=== PATIENT | female | born 1965 | race Caucasian/White ===

== ENCOUNTER 2023-12-17 07:12 | Emergency (ER) | payer BC, SELFPAY ==
[2023-12-17 07:13] VITALS: BMI 25.9
[2023-12-17 07:16] VITALS: BP 199/112
[2023-12-17 07:29] VITALS: BP 197/90
--- NOTE | 2023-12-17 07:53 | ED.MUSCINJ ---
HPI-Injury
General
Chief Complaint: Musculo-Skeletal Complaint
Source: patient
Exam Limitations: none
Time Seen by Provider: 12/17/23 07:29
Nursing documentation reviewed up to this point in time: agreed with
Travel History
Have you had any contact with someone who has COVID-19?: No
Do you have any symptoms of coronavirus? Fever > 100 degrees, chills, cough, shortness of breath, sore throat, loss of taste or smell, muscle aches, or headache?: No
History of Present Illness-Injury
Initial Injury comments:
58-year-old female for evenings ago struck the left lateral mid ribs on the back of a chair, the area has been increasingly painful since. 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
boards. States pain is 10/10.
Past History
Past History
ED Past Medical History: None
ED Past Surgical History: Cholecystectomy and Gynecological
Social History
Tobacco: Smoker
Alcohol: Occasional
Personal:
Living: with family
Employment: Employed
Review of Systems
Review of Systems
Allergies reviewed?: Yes
All Other Systems: ROS reviewed and negative except as documented in HPI and ROS
Constitutional: Denies fever
Respiratory: Denies cough, hemoptysis or trouble breathing
Cardiac: Denies chest pain
ABD/GI: Denies abdominal pain or nausea
Musculoskeletal: Reports other (pain left lateral mid ribs)
Skin: Reports no symptoms
Phy Exam
Physical Exam
Physical Exam:
GENERAL: No acute distress. A&Ox3.
CONSTITUTIONAL: Afebrile.
RESPIRATORY: Regular respirations, nonlabored, lungs clear.
CARDIOVASCULAR: Regular rate and rhythm, no murmurs, no rubs.
GI: Soft, nontender
MUSCULOSKELETAL: Tender mid lateral left rib cage. Moves with ease. Well perfused.
SKIN: Warm, dry, pink
PSYCH: Normal mood and affect. Well kept, interactive and appropriate
NEUROLOGIC: Awake, alert and oriented. No focal neurological deficits
Injury Course
Orders/Labs/Results
Orders:
Orders
12/17/23 07:52
Ketorolac [Toradol] 30 mg IM NOW STA
Ribs, Left 3 View W/PA Chest CR [CR Ribs-left 3 Vw W/pa Chest] Urgent
Comment:
Reason For Exam: struck later mid ribs on chair back
12/17/23 07:56
Rx Incentive Spirometry [RESP] Urgent
Frequency: q1h while awake
12/17/23 08:55
Dexamethasone [Decadron] 10 mg PO NOW STA
Diphenhydramine [Benadryl] 50 mg PO NOW STA
MDM/Problems Addressed
Differential Diagnosis Includes:
rib contusion, rib fracture
allergic reaction
MDM/Problems Addressed:
58-year-old female for evenings ago struck the left lateral mid ribs on the back of a chair, the area has been increasingly painful since. 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
boards. States pain is 10/10.
Left rib x-rays initially read by this examiner: There is a nondisplaced fracture of rib #6, no pneumothorax or other abnormality noted
8:55 AM
Rib belt applied with stated comfort. Toradol IM given for pain
Since patient is a smoker, incentive spirometer given with instructions on use, encouraged to stop smoking. She has 'the patch' at home to use if needed
Patient is breaking out in welts about her neck chest and back, most likely reaction to the Toradol
Benadryl and Decadron ordered
9:30 a.m.
Pt has had no further hives, no other symptoms developed. Stable for discharge.
Rx for Prednisone 40 mg daily x 3 days sent to her pharmacy. Henderson rx sent to her pharmacy
*Critical Care Note
Total Time (30-74mins, 75-104mins- exclusive of procedures): Not Applicable
ED Attending Note
-
Portions of this chart may have been created with voice recognition software.� Occasional wrong word or��sound alike� substitutions may have occurred due to the inherent limitations of voice recognition software.
Discharge Plan
Departure
Patient Disposition: Home (Routine Discharge)
Date of Disposition: 12/17/23
Time of Disposition: 09:38
Patient with high blood pressure during this ER visit?: Yes
Condition: Good
Discharge Problem:
Left rib fracture, Allergic reaction caused by a drug
Instructions: Rib fractures in adults, Allergic Reaction ED
Prescriptions:
New
hydrocodone-acetaminophen 5-325 mg tablet
1 tab PO Q8H PRN (Reason: Pain) Qty: 14 0RF
prednisone 20 mg tablet
40 mg PO DAILY Qty: 6 0RF
No Action
famotidine [Pepcid] 20 mg Tablet
20 mg PO DAILY PRN (Reason: heartburn)
calcium carbonate [Tums] 200 mg calcium (500 mg) Tablet,Chewable
600 - 800 mg PO BID PRN (Reason: heartburn)
Referrals:
Wesly Ayers MD [Family Provider] - Call in 1-3 days for appt
Stand Alone Forms: Return to Work
Activity Restrictions/Additional Instructions:
As we discussed, ibuprofen 600 mg, with food, every 6 hours as needed for mild to moderate pain and use the Henderson which is hydrocodone if needed for worse pain.
Do not drive or operate any machinery within 6 hours of taking the hydrocodone as it can make you sleepy and slow the reflexes.
Wear the rib belt if it helps
Use the incentive spirometer taking 10 deep breaths in every hour while awake for the next week.
I sent a prescription to your pharmacy for the Henderson
I also sent a prescription to your pharmacy for prednisone 40 mg daily for 3 days. Started tomorrow as you were given a dose of steroid here today for the reaction to the Toradol.
Consider self allergic to Toradol and do not take it again
Interventions
Interventions:
*Risk Screen - Suicide Last Done: 12/17/23 07:16
*General Assessment Last Done: 12/17/23 07:16
*Neglect/Abuse Screening Last Done: 12/17/23 07:16
ED- Fall Risk Assessment Last Done: 12/17/23 09:53
*ED COVID-19 Vaccine History Last Done: 12/17/23 07:16
*Nursing Disposition Last Done: 12/17/23 09:53
ED-Musculoskeletal Assessment Last Done: 12/17/23 07:27
Discharge Date and Time
Discharge Date/Time: 12/17/23 09:54
Print Language: GREEK
[2023-12-17] MEDS: TORADOL 30 MG IM (08:04)
[2023-12-17] MEDS: BENADRYL 50 MG PO (09:02)
[2023-12-17] MEDS: DECADRON 10 MG PO (09:02)
[2023-12-17 09:03] VITALS: BP 167/80
--- NOTE | 2023-12-17 09:06 | EDRN ---
Pt had an allergic reaction to Toradol with hives to upper body. No anaphylaxis. Medicated with Benadryl and Decadron. Allergy recorded.
[2023-12-17 09:53] VITALS: BP 162/87
== END 2023-12-17 09:54 | disposition home or self-care (01) ==
LOC: EMR 07:12
PROVIDERS: EMERGENCY PHYSICIAN Emergency Medicine
DX: S22.32XA Fracture of one rib, left side, initial encounter for closed fracture (principal); T50.905A Adverse effect of unspecified drugs, medicaments and biological substances, initial encounter; L50.9 Urticaria, unspecified; W22.8XXA Striking against or struck by other objects, initial encounter; R03.0 Elevated blood-pressure reading, without diagnosis of hypertension; F17.200 Nicotine dependence, unspecified, uncomplicated; Z90.49 Acquired absence of other specified parts of digestive tract; Z88.6 Allergy status to analgesic agent
CPT/HCPCS: 99284; 96372; 71101

== ENCOUNTER 2024-05-14 07:33 | Emergency (ER) | payer SELFPAY ==
[2024-05-14 07:35] VITALS: BP 197/101
--- NOTE | 2024-05-14 08:31 | ED.GENMED ---
History of Present Illness
General
Chief Complaint: Musculo-Skeletal Complaint
Source: patient
Exam Limitations: none
Time Seen by Provider: 05/14/24 07:45
Nursing documentation reviewed up to this point in time: agreed with
History of Present Illness
History of Present Illness:
58-year-old female history of COPD, GERD presenting to the emergency department after trip and fall while at work a few hours prior to arrival hitting her left axilla region. Also hit her left knee. Able to walk only main discomfort at this point
is the left axillary ribs. Slight increase in discomfort with deep breaths no nausea vomiting no head trauma not on blood thinners no neck pain no specific chest pain.
Past History
Past History
ED Past Medical History: None
ED Past Surgical History: Cholecystectomy and Gynecological
Social History
Tobacco: Smoker
Alcohol: Occasional
Personal:
Living: with family
Employment: Employed
Review of Systems
Review of Systems
Allergies reviewed?: Yes
All Other Systems: ROS reviewed and negative except as documented in HPI and ROS
Phy Exam
Physical Exam
Physical Exam:
GENERAL: Alert , in no apparent distress
EYE: pupils equal and reactive
NECK: Supple, no significant adenopathy. No neck pain to palpation
ENT: o/p clr, mmm.
CARDIAC: Tenderness palpation to the left axillary ribs roughly rib space 3 and 4. No overlying skin changes no crepitus. Regular rate and rhythm .
LUNGS: Clear breath sounds bilaterally, no acute respiratory distress, no wheezes/rales/rhonchi
ABDOMEN: Soft, without focal tenderness, no r/g, no cvat
NEUROLOGICAL: Alert and oriented, no focal neuro deficits 5 out of 5 upper and lower extremity strength normal sensation with palpating bilaterally.
SKIN: Warm and dry, skin intact.
MUSCULOSKELETAL: No edema, well perfused. Good range of motion and strength of all extremities
PSYCH: Normal and appropriate interaction.
Course
Orders/Labs/Results
Orders:
Orders
05/14/24 07:41
CR Ribs-left 3 Vw W/pa Chest Urgent
Comment:
Reason For Exam: pain s/p fall
05/14/24 08:16
Ibuprofen [Motrin] 600 mg PO NOW STA
Vital Signs
Initial and Last Documented VS:
Initial Vital Signs
Temp Pulse Resp BP Pulse Ox
97.7 F 72 18 197/101 100
05/14/24 07:35 05/14/24 07:35 05/14/24 07:35 05/14/24 07:35 05/14/24 07:35
Last Documented Vital Signs
Temp Pulse Resp BP Pulse Ox
97.7 F 72 18 197/101 100
05/14/24 07:35 05/14/24 07:35 05/14/24 07:35 05/14/24 07:35 05/14/24 07:35
MDM/Problems Addressed
MDM/Problems Addressed:
58-year-old female presenting to the emergency department after trip and fall over a board on the ground at work hitting her left axilla. No head trauma no neck pain not on blood thinners. Minimal discomfort left knee but good range of motion
strength no evidence of fracture. X-ray ribs on the left side with his of broken rib. Lung spaces with chronic changes findings. Patient with likely rib contusion. Plan for symptomatic treatment otherwise stable for discharge.
*Critical Care Note
Total Time (30-74mins, 75-104mins- exclusive of procedures): Not Applicable
ED Attending Note
-
Portions of this chart may have been created with voice recognition software.� Occasional wrong word or��sound alike� substitutions may have occurred due to the inherent limitations of voice recognition software.
Discharge Plan
Departure
Patient Disposition: Home (Routine Discharge)
Date of Disposition: 05/14/24
Time of Disposition: 09:08
Patient with high blood pressure during this ER visit?: No
Condition: Good
Covid-19: Not Applicable
Discharge Problem:
Contusion of rib
Instructions: Bruised Rib (DC)
Prescriptions:
New
oxycodone-acetaminophen [Endocet] 5-325 mg tablet
1 tab PO Q8H PRN (Reason: Pain) Qty: 7 0RF
No Action
famotidine [Pepcid] 20 mg Tablet
20 mg PO DAILY PRN (Reason: heartburn)
calcium carbonate [Tums] 200 mg calcium (500 mg) Tablet,Chewable
600 - 800 mg PO BID PRN (Reason: heartburn)
hydrocodone-acetaminophen 5-325 mg tablet
1 tab PO Q8H PRN (Reason: Pain) Qty: 14 0RF
prednisone 20 mg tablet
40 mg PO DAILY Qty: 6 0RF
Referrals:
Wesly Ayers MD [Family Provider] -
Activity Restrictions/Additional Instructions:
You came to the emergency department today with concerns of a rib injury. He likely have a rib contusion. Please use lidocaine patch Motrin and Percocet as needed to help with discomfort and use your incentive spirometer to ensure there is no lung
injury. Please follow closely with the primary care doctor within 1 week for reassessment. Return to the emergency department for any worsening, new or concerning symptoms.
Interventions
Interventions:
*Risk Screen - Suicide Last Done: 05/14/24 07:35
*Neglect/Abuse Screening Last Done: 05/14/24 07:35
*ED COVID-19 Vaccine History Last Done: 05/14/24 07:35
ED-Musculoskeletal Assessment Last Done: 05/14/24 07:50
Discharge Date and Time
Print Language: MICRONESIAN
[2024-05-14] MEDS: MOTRIN 600 MG PO (09:22)
[2024-05-14 09:35] VITALS: BP 159/93
== END 2024-05-14 09:41 | disposition home or self-care (01) ==
LOC: EMR 07:33
PROVIDERS: EMERGENCY PHYSICIAN Emergency Medicine
DX: S20.219A Contusion of unspecified front wall of thorax, initial encounter (principal); W01.0XXA Fall on same level from slipping, tripping and stumbling without subsequent striking against object, initial encounter; Y99.0 Civilian activity done for income or pay; J43.9 Emphysema, unspecified; K21.9 Gastro-esophageal reflux disease without esophagitis; F17.200 Nicotine dependence, unspecified, uncomplicated; Z90.49 Acquired absence of other specified parts of digestive tract
CPT/HCPCS: 99283; 71101